=== PATIENT | male | born 1970 | race Two or more races ===

== ENCOUNTER 2021-10-26 20:43 | Emergency (ER) | payer MEDICAID ==
[~2021-10-26] VITALS: Ht 175.3 cm; Wt 77.1 kg
--- NOTE | 2021-10-26 21:50 | NUR ---
BIB SELF C/O ABD FULLNESS. REPORT HAVING HAD DIFFICULTY HAVING BM. PATIENT ALSO NOTES SOME BLOOD IN HIS STOOL. HAS A GI APPT SCHEDULED BUT WANTED TO GET CHECKED SOONER. PT AWAKE AND ALERT X4 AMBULATORY WITH STEADY GAIT CHANGED INTO GOWN AND PLACED ON MONITOR AND V/S WNL.
--- NOTE | 2021-10-26 21:54 | NUR ---
[employer] REPAIRER AT PT'S BEDSIDE
[2021-10-26 22:09] LABS: BASOPHILS % (AUTO) 0.6 % (0.0-2.0); EOSINOPHILS % (AUTO) 1.1 % (0.0-6.0); HEMATOCRIT 45 % (39-51); LYMPHOCYTES # (AUTO) 1.7 K/uL (0.8-4.8); LYMPHOCYTES % (AUTO) 25.2 % (20.0-44.0); MEAN CORPUSCULAR HGB CONC 33 g/dl (31.0-36.0); MEAN CORPUSCULAR VOLUME 89 fL (80-96); MONOCYTES # (AUTO) 0.6 K/uL (0.1-1.30); MONOCYTES % (AUTO) 8.5 % (2.0-12.0); NEUTROPHILS # (AUTO) 4.5 K/uL (1.8-8.9); NEUTROPHILS % (AUTO) 64.6 % (43.0-81.0); PLATELET COUNT (AUTO) 291 K/uL (150-450); RED BLOOD CELL COUNT(AUTO) 5.06 MIL/uL (4.5-6.0); WHITE BLOOD COUNT (AUTO) 6.9 K/uL (4.3-11.0)
[2021-10-26 22:13] LABS: BILIRUBIN,URINE NEGATIVE (NEGATIVE); COLOR,URINE YELLOW (YELLOW); LEUKOCYTE ESTERASE ,URINE NEGATIVE (NEGATIVE); NITRITE, URINE NEGATIVE (NEGATIVE); PH,URINE 5.5 (5.0-8.0); PROTEIN,URINE NEGATIVE (NEGATIVE); UGLUCOSE NEGATIVE (NEGATIVE); UROBILINOGEN,URINE 0.2 EU/dL (0.2)
[2021-10-26 22:24] LABS: ALBUMIN 4.4 g/dL (3.4-5.0); BILIRUBIN,DIRECT 0.1 mg/dL (0.0-0.2); BILIRUBIN,TOTAL 0.7 mg/dL (0.2-1.0); CALCIUM, SERUM 8.9 mg/dL (8.5-10.1); CREATININE 1.1 mg/dL (0.6-1.3); POTASSIUM 3.7 mmol/L (3.5-5.1); TOTAL PROTEIN, SERUM 7.8 g/dL (6.4-8.2)
--- NOTE | 2021-10-26 22:27 | NUR ---
pt returned to er bed [address]
--- NOTE | 2021-10-26 22:27 | NUR ---
PT TAKEN TO AND RETURNED FROM CT VIA [facility]
[2021-10-26] MEDS ORDERED: DOCU-141 PO (23:45)
[2021-10-26] MEDS ORDERED: POLY17PO4 PO (23:45)
--- NOTE | 2021-10-27 | NUR ---
Patient discharged to home in stable condition. Written and verbal after care instructions given. Patient verbalizes understanding of instruction.
[2021-10-27 00:40] VITALS: BP 141/87
== END 2021-10-27 00:30 | disposition home or self-care (01) ==
LOC: ER 20:48
DX: K59.00 Constipation, unspecified (principal); Z98.890 Other specified postprocedural states; Z79.899 Other long term (current) drug therapy
CPT/HCPCS: 36415; 80048-TC; 80076-TC; 83690-TC; 85025-TC

== ENCOUNTER 2021-10-30 01:06 | Emergency (ER) | payer MEDICAID, OTHER ==
[~2021-10-30] VITALS: Ht 175.3 cm; Wt 77.1 kg
[~2021-10-30 01:06] MED LIST: DOCU-141 PO; POLY17PO4 PO
--- NOTE | 2021-10-30 01:20 | NUR ---
[facility]IA C/O BLOOD IN STOOL. SEEN AT [facility] LAST WEEK. PT REQUESTING FOR CT WITH CONTRAST. "MOTHER HAD HX OF ABD CANCER". CHANGED INTO GOWN. CONNECTED TO MONITOR. AWAITING MD HOLBROOK
[2021-10-30] MEDS ORDERED: ACETAMINOPHEN 325 MG TABLET ONE (02:45)
[2021-10-30] MEDS: ACETAMINOPHEN 325 MG TABLET PO ONE (02:48)
--- NOTE | 2021-10-30 02:49 | NUR ---
URINE COLLECTED AND SENT TO LAB
--- NOTE | 2021-10-30 02:52 | NUR ---
IV LINE ESTABLISHED, LAC 18G. BLOOD COLLECTED AND SENT TO LAB
[2021-10-30 03:08] LABS: OCCULT BLOOD STOOL NEGATIVE (NEGATIVE)
[2021-10-30 03:09] LABS: BASOPHILS % (AUTO) 0.3 % (0.0-2.0); EOSINOPHILS % (AUTO) 0.9 % (0.0-6.0); HEMATOCRIT 45 % (39-51); HEMOGLOBIN 15.4 g/dL (13.5-17.5); LYMPHOCYTES # (AUTO) 1.7 K/uL (0.8-4.8); LYMPHOCYTES % (AUTO) 20.2 % (20.0-44.0); MEAN CORPUSCULAR HGB CONC 34 g/dl (31.0-36.0); MEAN CORPUSCULAR VOLUME 89 fL (80-96); MONOCYTES # (AUTO) 0.6 K/uL (0.1-1.30); MONOCYTES % (AUTO) 6.9 % (2.0-12.0); NEUTROPHILS % (AUTO) 71.7 % (43.0-81.0); PLATELET COUNT (AUTO) 299 K/uL (150-450); RED BLOOD CELL COUNT(AUTO) 5.08 MIL/uL (4.5-6.0); WHITE BLOOD COUNT (AUTO) 8.4 K/uL (4.3-11.0)
[2021-10-30 03:10] LABS: BILIRUBIN,URINE NEGATIVE (NEGATIVE); COLOR,URINE YELLOW (YELLOW); LEUKOCYTE ESTERASE ,URINE NEGATIVE (NEGATIVE); NITRITE, URINE NEGATIVE (NEGATIVE); PROTEIN,URINE NEGATIVE (NEGATIVE); UGLUCOSE NEGATIVE (NEGATIVE); UROBILINOGEN,URINE 0.2 EU/dL (0.2)
[2021-10-30 03:27] LABS: ALBUMIN 4.3 g/dL (3.4-5.0); BILIRUBIN,DIRECT 0.2 mg/dL (0.0-0.2); BILIRUBIN,TOTAL 0.7 mg/dL (0.2-1.0); TOTAL PROTEIN, SERUM 7.7 g/dL (6.4-8.2)
[2021-10-30] MEDS ORDERED: IOHEXOL-300 100 ML VIAL IV ONE (03:46)
[2021-10-30] MEDS ORDERED: IV NS 0.9% 250 ML IV ONE (03:46)
--- NOTE | 2021-10-30 04:20 | NUR ---
CHAPERONED DR LUNA DURING RECTAL EXAM
--- NOTE | 2021-10-30 06:23 | NUR ---
Patient discharged to home in stable condition. Written and verbal after care instructions given. Patient verbalizes understanding of instruction.
[2021-10-30] MEDS ORDERED: AMOX-430 PO (06:37)
[2021-10-30 06:41] VITALS: BP 139/91
== END 2021-10-30 06:42 | disposition home or self-care (01) ==
LOC: ER 01:07
DX: K92.1 Melena (principal); K62.89 Other specified diseases of anus and rectum; Z79.899 Other long term (current) drug therapy
CPT/HCPCS: 36415; 74177; 80076; 81003; 82272; 83690; 85025; 93005; 99285; J7050; Q9967

== ENCOUNTER 2021-11-13 15:22 | Emergency (ER) | payer MEDICAID, OTHER ==
[~2021-11-13] VITALS: Ht 175.3 cm; Wt 70.3 kg
[~2021-11-13 15:22] MED LIST changes: +AMOX-430 PO
[2021-11-13 17:38] LABS: BASOPHILS % (AUTO) 0.8 % (0.0-2.0); EOSINOPHILS % (AUTO) 1.3 % (0.0-6.0); HEMATOCRIT 45 % (39-51); HEMOGLOBIN 15.2 g/dL (13.5-17.5); LYMPHOCYTES # (AUTO) 1.3 K/uL (0.8-4.8); LYMPHOCYTES % (AUTO) 23.9 % (20.0-44.0); MEAN CORPUSCULAR HGB CONC 34 g/dl (31.0-36.0); MEAN CORPUSCULAR VOLUME 89 fL (80-96); MONOCYTES # (AUTO) 0.6 K/uL (0.1-1.30); MONOCYTES % (AUTO) 10.4 % (2.0-12.0); NEUTROPHILS # (AUTO) 3.5 K/uL (1.8-8.9); NEUTROPHILS % (AUTO) 63.6 % (43.0-81.0); PLATELET COUNT (AUTO) 270 K/uL (150-450); RED BLOOD CELL COUNT(AUTO) 5.04 MIL/uL (4.5-6.0); WHITE BLOOD COUNT (AUTO) 5.4 K/uL (4.3-11.0)
--- NOTE | 2021-11-13 17:52 | NUR ---
BIBSelf in [employer], c/o chest pain and SOB
--- NOTE | 2021-11-13 17:53 | NUR ---
PT STATED BLOOD IN STOOL 2 - 3 WEEKS AGO ALOT, WENT TO GI MD WAS GOING TO DO COLONOSCOPY, DID NOT DO PROCEDURE YET, HAS FELT SOB FOR LAST 2 WEEKS, RIGHT SIDE LOW BACK DULL PAIN NOTED, FEELS TIRED FATIGUED AND CHEST PAIN NOTED.
[2021-11-13 18:10] LABS: CALCIUM, SERUM 8.7 mg/dL (8.5-10.1); CARBON DIOXIDE 33 mmol/L (21-32); CHLORIDE 104 mmol/L (98-107); GLUCOSE 115 mg/dL (74-106); POTASSIUM 4.3 mmol/L (3.5-5.1); SODIUM SERUM 141 mmol/L (136-145); UREA NITROGEN, BLOOD 10 mg/dL (7-18)
[2021-11-13 18:24] LABS: ALANINE AMINOTRANSFERASE 20 U/L (12-78); ALKALINE PHOSPHATASE 79 U/L (46-116); ASPARTATE AMINOTRANSFERASE 14 U/L (15-37); BILIRUBIN,DIRECT 0.1 mg/dL (0.0-0.2); BILIRUBIN,TOTAL 0.3 mg/dL (0.2-1.0); TOTAL PROTEIN, SERUM 7.2 g/dL (6.4-8.2)
[2021-11-13] MEDS ORDERED: IOHEXOL-350 100 ML VIAL IV ONE (18:56)
[2021-11-13] MEDS ORDERED: IV NS 0.9% 250 ML IV ONE (18:56)
--- NOTE | 2021-11-13 20:37 | NUR ---
Patient discharged to home in stable condition. Written and verbal after care instructions given. Patient verbalizes understanding of instruction.IV removed. Catheter intact and site benign. Pressure and 4x4 applied to site. No bleeding noted. Pt ambulatory with a steady gait
[2021-11-13 20:39] VITALS: BP 133/98
== END 2021-11-13 20:39 | disposition home or self-care (01) ==
LOC: ER 15:50
DX: R07.9 Chest pain, unspecified (principal); R06.02 Shortness of breath; Z20.822 Contact with and (suspected) exposure to COVID-19
CPT/HCPCS: 36415; 71045; 71275; 80048; 80076; 84484; 85025; 85378; 87426; 93005; 99285; C9803; J7050; Q9967